=== PATIENT | female | born 1980 | race Caucasian/White ===

== ENCOUNTER → 2016-10-02 | Outpatient (CLI) | payer BC ==
[~2016-10-02] MED LIST: FOLI-11 PO; METF500T PO; PRENTAB26 PO
--- NOTE | 2016-10-02 11:05 | DIAGNOSTIC IMAGING REPORT ---
THYROID ULTRASOUND HISTORY: Neck lymphadenopathy. COMPARISON: None. FINDINGS: A few left cervical lymph nodes are identified. Dominant lymph node measures 1.9 x 0.6 x 0.7 cm. This demonstrates a small fatty hilum and a borderline thickened cortex. IMPRESSION: A few left cervical lymph nodes which do not meet size criteria for pathologic involvement. These are likely benign. However, these lymph nodes demonstrate borderline thickened cortex and a small fatty hilum. If these are increasing in size clinically then consider fine-needle aspiration. Otherwise, follow-up ultrasound is recommended to ensure stability. Electronically signed by: Jp Lemons M.D. 10/02/2016 11:04 AM Dictated Date/Time: 10/02/2016 11:00 AM
== END | disposition home or self-care (01) ==
LOC: C.ULTR 10:38
PROVIDERS: ATTEND Nurse Practitioner Family
DX: R59.1 Generalized enlarged lymph nodes (principal)

== ENCOUNTER 2022-12-11 22:02 | Observation (INO) ==
[2022-12-11] MEDS ORDERED: ONDANSETRON INJ 2 MG/ML 2 ML VIAL IV STA (22:25)
[2022-12-11] MEDS ORDERED: MoRPHine SULFATE 4 MG/ML 1 ML CARP\\VIAL IV PRN (22:25)
[2022-12-11] MEDS ORDERED: SODIUM CHLORIDE 0.9% 1000ML 1,000 ML IV SCH (22:30)
--- NOTE | 2022-12-11 22:35 | Emergency Department Note ---
History of Present Illness General Chief complaint: Abdominal Pain Stated complaint: ABDOMINAL PAIN Time Seen by Provider: 12/11/22 22:12 History of Present Illness Maximum Pain Intensity: 5 This is a 42-year-old female presenting to the emergency department for evaluation of abdominal pain worsening over the past 36 hours. Patient noticed some abdominal discomfort after eating lunch yesterday. She skipped dinner as she reportedly had 7/10 pain. She did have a plain bagel this morning and this did not improve or worsen her discomfort. Her initial pain was epigastric, but now is distinctly in the right lower quadrant. Her last menses was 28 days ago, however she typically is on a 35-day cycle and this is normal for her. Patient does not have a history of belly surgery. She considers herself very healthy, and is an active ultramarathon runner. She has not had fevers or chills. No chest pains, chest tightness, shortness of breath. Home Medications Medication Instructions Recorded Confirmed Type ascorbic acid (vitamin C) 500 mg 500 mg PO DAILY 12/12/22 12/12/22 History tablet (Vitamin C) hydrocortisone 1 % topical cream 1 applic topical DIRECTED PRN 12/12/22 12/12/22 History (Preparation H Hydrocortisone) Hemorrhoids hydrocortisone-pramoxine 2.5 %-1 % 1 applic [place] TID 12/12/22 12/12/22 History rectal cream hydroxyzine HCl 10 mg tablet 20 mg PO HS 12/12/22 12/12/22 History multivitamin 1 tab PO DAILY 12/12/22 12/12/22 History psyllium husk 3.4 gram/5.4 gram 1 tbsp PO DAILY 12/12/22 12/12/22 History oral powder (Metamucil) Allergies Allergy/AdvReac Type Severity Reaction Status Date / Time amoxicillin Allergy Mild Rash Verified 12/12/22 01:15 bacitracin Allergy Mild Unknown Verified 12/12/22 01:08 [From Neosporin ([id number])] cefaclor Allergy Mild Unknown Verified 12/12/22 01:08 erythromycin base Allergy Mild Rash Verified 12/12/22 01:15 Macrolide Antibiotics Allergy Mild Unknown Verified 12/12/22 01:08 neomycin Allergy Mild Unknown Verified 12/12/22 01:08 [From Neosporin ([id number])] nickel Allergy Mild Unknown Verified 12/12/22 01:08 Penicillins Allergy Mild Rash Verified 12/12/22 01:15 polymyxin B Allergy Mild Unknown Verified 12/12/22 01:08 [From Neosporin ([id number])] clarithromycin Allergy Unknown HIVES Verified 12/12/22 01:23 Past Med/Surg History Medical History No chronic diseases present Surgical History No significant past surgical history Social History Smoking Status: Never smoker Do You Dip or Chew Tobacco: No; Hx Alcohol Use: Yes Hx Substance Use: No Preferred Language: Macanese Communication Ability: Effective Assistant Director Of Residence Life Required: No Beliefs That Will Affect Care: None Current Living Situation: Spouse and Family Other Information That Helps Us Care for You: No Feels Safe at Home: Yes Safety Concerns: Feels Safe At This Time Assistive Devices: None Review of Systems A total of 10 systems reviewed and were otherwise negative Physical Exam Vital Signs Vital Signs - 24 hr 12/11/22 22:07 12/11/22 22:38 12/11/22 22:52 Temperature 37.2 C Temperature Source Oral Pulse Rate 78 64 Pulse Rate [Bilateral Apical] 71 Respiratory Rate 16 20 Respiratory Effort / Characteristics Non-Labored Spontaneous Non-Labored Respiratory Depth Normal Normal Respiratory Pattern Regular Blood Pressure 127/72 Blood Pressure [Left Arm] 120/72 Blood Pressure Mean 90 Blood Pressure Mean [Left Arm] 88 Pulse Oximetry 100 99 Oxygen Delivery Method Room Air Room Air Sepsis Recent Fever Within 48 Hours No Sepsis New/Unexplained Change in Mental Status No Sepsis Action Taken by Nursing No Action Required 12/11/22 23:01 12/12/22 01:00 Temperature Temperature Source Pulse Rate 62 71 Pulse Rate [Bilateral Apical] Respiratory Rate 14 20 Respiratory Effort / Characteristics Respiratory Depth Respiratory Pattern Blood Pressure 112/71 115/77 Blood Pressure [Left Arm] Blood Pressure Mean 84 89 Blood Pressure Mean [Left Arm] Pulse Oximetry 100 99 Oxygen Delivery Method Room Air Room Air Sepsis Recent Fever Within 48 Hours Sepsis New/Unexplained Change in Mental Status Sepsis Action Taken by Nursing VITALS: Vitals are noted on the nurse's note and reviewed by myself. Vital signs stable. GENERAL: Well-developed, well-nourished, white female, who is in no acute distress and resting comfortably. Patient is cooperative with the examination. HEAD: Normocephalic atraumatic. NECK: Supple without nuchal rigidity. No lymphadenopathy. No thyromegaly. Cervical spine is nontender. HEART: Regular rate and rhythm without murmurs gallops or rubs. LUNGS: Clear to auscultation bilaterally without wheezes, rales or rhonchi. No retractions or accessory muscle use. ABDOMEN: Positive normal bowel sounds x 4. Soft with distinct right lower quadrant tenderness. Positive rebound tenderness. MUSCULOSKELETAL: No muscle atrophy, erythema, or edema noted. Full range of motion in all extremities. NEURO: Patient was alert and oriented to person place and time. CN II through XII grossly intact. Course Administered Medications Morphine Sulfate (Morphine Sulfate 4 Mg/Ml 1 Ml Carp\Vial) 3 mg IV Q3H PRN PRN Reason: Severe Pain (Scale 7, 8, 9,10) Stop: 12/26/22 00:59 Last Admin: 12/12/22 01:31 Dose: 3 mg Documented By: RADHA Ondansetron HCl (Ondansetron Inj 2 Mg/Ml 2 Ml Vial) 4 mg IV Q6H PRN PRN Reason: Nausea And Vomiting Stop: 01/11/23 00:59 Last Admin: 12/12/22 01:31 Dose: 4 mg Documented By: RADHA Discontinued Medications Sodium Chloride (Nss 1000ml) 1,000 mls @ 999 mls/hr IV .Q1H1M [facility] Stop: 12/11/22 23:30 Last Infusion: 12/11/22 23:44 Dose: 0 mls/hr Documented By: Admin: 12/11/22 22:43 Dose: 999 mls/hr Documented By: SONYA Ciprofloxacin (Cipro / D5w) 400 mg in 200 mls @ 100 mls/hr IV NOW STA; Protocol Stop: 12/12/22 02:59 Last Infusion: 12/12/22 03:44 Dose: 0 mls/hr Documented By: Admin: 12/12/22 01:44 Dose: 100 mls/hr Documented By: RADHA Metronidazole (Flagyl) 500 mg in 100 mls @ 100 mls/hr IV NOW STA; Protocol Stop: 12/12/22 01:59 Last Infusion: 12/12/22 02:31 Dose: 0 mls/hr Documented By: Admin: 12/12/22 01:31 Dose: 100 mls/hr Documented By: RADHA Ioversol (Optiray 320 100ml) 92 ml IV ONCE ONE Stop: 12/12/22 00:12 Last Admin: 12/12/22 00:11 Dose: 92 ml Documented By: FRANKO Ondansetron HCl (Ondansetron Inj 2 Mg/Ml 2 Ml Vial) 4 mg IV NOW STA Stop: 12/11/22 22:26 Last Admin: 12/11/22 22:43 Dose: 4 mg Documented By: SONYA Medical Decision Making Differential Diagnosis Differential diagnosis: Etiologies such as biliary colic, cholecystitis, hepatitis, pancreatitis, cardiac disease, pancreatitis, gastritis, peptic ulcer disease, appendicitis, cystitis, diverticulitis, mesenteric ischemia, inflammatory bowel disease, ileus, bowel obstruction, testicular/adnexal torsion, aortic pathology, shingles, as well as others were considered Laboratory Data 12/11/22 22:40 12/11/22 22:40 Lab Results 12/11/22 12/11/22 12/11/22 Range/Units 22:20 22:38 22:40 WBC 9.69 (4.8-10.8) K/ul RBC 4.80 (4.20-5.40) M/uL Hgb 14.2 (12.0-16.0) g/dl Hct 42.3 (37.0-47.0) % MCV 88.1 (80.0-100.0) fL MCH 29.6 (25.0-34.0) pg MCHC 33.6 (32.0-36.0) g/dL RDW Std Deviation 40.7 (36.4-46.3) fL RDW Coeff of Fred 12.6 (11.5-14.5) % Plt Count 238 (130-400) K/uL MPV 10.5 (9.4-12.4) fL Immature Gran % (Auto) 0.2 % Neut % (Auto) 69.5 % Lymph % (Auto) 19.5 % [place] % (Auto) 7.9 % Eos % (Auto) 2.2 % Baso % (Auto) 0.7 % Neut # (Auto) 6.73 H (1.40-6.50) K/uL Lymph # (Auto) 1.89 (1.2-3.4) K/uL [place] # (Auto) 0.77 H (0.11-0.59) K/uL Eos # (Auto) 0.21 (0-0.50) K/uL Baso # (Auto) 0.07 (0-0.2) K/uL Immature Gran # (Auto) 0.02 (0.01-0.20) K/uL Sodium (136-145) mmol/L Potassium (3.5-5.1) mmol/L Chloride (98-107) mmol/L Carbon Dioxide (21-32) mmol/L Anion Gap (3-11) BUN (6-23) mg/dl Creatinine (0.6-1.2) mg/dl Est Cr Clr Drug Dosing ml/min Est GFR ( Amer) ml/min Est GFR (Non-Af Amer) ml/min BUN/Creatinine Ratio (10-20) Glucose (70-99(Fasting)) mg/dl Calcium (8.6-10.3) mg/dl Total Bilirubin (0.2-1.0) mg/dl AST (13-39) U/L ALT (7-52) U/L Alkaline Phosphatase (34-104) U/L Total Protein (6.0-8.3) gm/dl Albumin (3.4-5.0) gm/dl Globulin (2.5-4.0) gm/dl Albumin/Globulin Ratio (0.9-2) Lipase (11-82) U/L HCG, Qual (Negative) Urine Color Dark Yellow Urine Appearance Clear (Clear) Urine pH 5.5 (4.5-7.5) Ur Specific [place] 1.029 (1.000-1.030) Urine Protein Negative (Negative) Urine Glucose (UA) Negative (Negative) Urine Ketones Trace H (Negative) Urine Blood Negative (Negative) Urine Nitrite Negative (Negative) Urine Bilirubin Negative (Negative) Urine Urobilinogen Negative (Negative) Ur Leukocyte Esterase Negative (Negative) POC Ur Test NEG (NEG) 12/11/22 12/11/22 Range/Units 22:40 22:40 WBC (4.8-10.8) K/ul RBC (4.20-5.40) M/uL Hgb (12.0-16.0) g/dl Hct (37.0-47.0) % MCV (80.0-100.0) fL MCH (25.0-34.0) pg MCHC (32.0-36.0) g/dL RDW Std Deviation (36.4-46.3) fL RDW Coeff of Fred (11.5-14.5) % Plt Count (130-400) K/uL MPV (9.4-12.4) fL Immature Gran % (Auto) % Neut % (Auto) % Lymph % (Auto) % [place] % (Auto) % Eos % (Auto) % Baso % (Auto) % Neut # (Auto) (1.40-6.50) K/uL Lymph # (Auto) (1.2-3.4) K/uL [place] # (Auto) (0.11-0.59) K/uL Eos # (Auto) (0-0.50) K/uL Baso # (Auto) (0-0.2) K/uL Immature Gran # (Auto) (0.01-0.20) K/uL Sodium 139 (136-145) mmol/L Potassium 3.5 (3.5-5.1) mmol/L Chloride 107 (98-107) mmol/L Carbon Dioxide 27 (21-32) mmol/L Anion Gap 5 (3-11) BUN 12 (6-23) mg/dl Creatinine 0.79 (0.6-1.2) mg/dl Est Cr Clr Drug Dosing 88.4 ml/min Est GFR ( Amer) 105.5 ml/min Est GFR (Non-Af Amer) 91.0 ml/min BUN/Creatinine Ratio 15.2 (10-20) Glucose 99 (70-99(Fasting)) mg/dl Calcium 9.1 (8.6-10.3) mg/dl Total Bilirubin 0.8 (0.2-1.0) mg/dl AST 22 (13-39) U/L ALT 18 (7-52) U/L Alkaline Phosphatase 56 (34-104) U/L Total Protein 6.9 (6.0-8.3) gm/dl Albumin 4.2 (3.4-5.0) gm/dl Globulin 2.7 (2.5-4.0) gm/dl Albumin/Globulin Ratio 1.6 (0.9-2) Lipase 88 H (11-82) U/L HCG, Qual Negative (Negative) Urine Color Urine Appearance (Clear) Urine pH (4.5-7.5) Ur Specific [place] (1.000-1.030) Urine Protein (Negative) Urine Glucose (UA) (Negative) Urine Ketones (Negative) Urine Blood (Negative) Urine Nitrite (Negative) Urine Bilirubin (Negative) Urine Urobilinogen (Negative) Ur Leukocyte Esterase (Negative) POC Ur Test (NEG) Imaging Data Radiologist's Impression: Abdomen/Pelvis CT 12/11/22 22:25 CR Exam(s): CT ABDOMEN + PELVIS With Contrast IV Amt: 92 cc's EXAM: CT Abdomen and Pelvis With Intravenous Contrast CLINICAL HISTORY: Reason for exam: rlq abd pain. TECHNIQUE: Axial computed tomography images of the abdomen and pelvis with intravenous contrast. Automated exposure control was utilized for the study. A dose lowering technique was utilized adhering to the principles of ALARA. CONTRAST: Patient received 92 cc's of IV contrast COMPARISON: No relevant prior studies available. FINDINGS: Lung bases: Unremarkable. No mass. No consolidation. ABDOMEN: Liver: Unremarkable. No mass. Gallbladder and bile ducts: Unremarkable. No calcified stones. No ductal dilation. Pancreas: Unremarkable. No mass. No ductal dilation. Spleen: Unremarkable. No splenomegaly. Adrenals: Unremarkable. No mass. Kidneys and ureters: Unremarkable. No solid mass. No hydronephrosis. Stomach and bowel: Unremarkable. No obstruction. No mucosal thickening. PELVIS: Appendix: The appendix is distended and inflamed without a appendicolith identified. No evidence for perforation. Bladder: Unremarkable. No mass. Reproductive: Unremarkable as visualized. ABDOMEN and PELVIS: Intraperitoneal space: Unremarkable. No free air. No significant fluid collection. Bones/joints: No acute fracture. No dislocation. Soft tissues: Unremarkable. Vasculature: Unremarkable. No abdominal aortic aneurysm. Lymph nodes: Unremarkable. No enlarged lymph nodes. IMPRESSION: Acute appendicitis without evidence for perforation or abscess. Communications: Verify Receipt Electronically signed by: Gatito Vásquez MD 12/12/22 00:28 AM MDM Narrative Physical exam and history were performed. Nursing notes, EMR, and Medication List were personally reviewed. No social concerns were identified as barriers to patients care. Patient appears to have right lower quadrant abdominal pain bringing her to the ER. She does have distinct tenderness on palpation. IV access was established and labs were obtained. She was hydrated with normal saline and made NPO. She was given IV morphine and IV Zofran. Patient was sent to CT scan for imaging of her abdomen and pelvis. Patient's blood work is as above and was reviewed. She does not have a significantly elevated white blood cell count, gross anemia, bandemia, or significant electrolyte imbalance. Lipase and transaminases are not diagnostic. She is not . Urine is without distinct evidence of infection. CT scan of the abdomen and pelvis was reviewed by myself and radiology. The patient appears to have acute uncomplicated appendicitis. This would correlate with her symptoms. On reevaluation the patient continues with some mild discomfort, but she is certainly not toxic. COVID is negative. She will need antibiotics, however she has several allergies noted in the EMR and this will be deferred to the surgical team. Case was discussed with the on-call surgical team who did evaluate the patient at bedside. Please see their dictation for further patient course, plan, and disposition. The chart was completed utilizing [employer] Speech Voice Recognition Software. Grammatical errors, random word insertions, pronoun errors, and incomplete sentences are an occasional consequence of this system due to software limitations, ambient noise, and hardware issues. Any formal questions or concerns about the content, text, or information contained within the body of this dictation should be directly addressed to the provider for clarification. . Impression & Plan Acute appendicitis Discharge Plan Visit Data Chief Complaint: Abdominal Pain Stated Complaint: ABDOMINAL PAIN ED Provider: Lacho Dennis ED Midlevel Provider: Rubens Narayan Discharge Problem: Acute appendicitis Patient Disposition: Admitted As Inpatient Discharge Instructions Interventions: ED Discharge Assessment Last Done: 12/12/22 03:43
[2022-12-11 23:13] LABS: Basophils # (auto) 0.07 K/uL (0-0.2); Basophils % (auto) 0.7 %; Eosinophils # (auto) 0.21 K/uL (0-0.50); Eosinophils % (auto) 2.2 %; Hematocrit (blood only) 42.3 % (37.0-47.0); Hemoglobin 14.2 g/dl (12.0-16.0); Immature Granulocytes # (auto) 0.02 K/uL (0.01-0.20); Immature Granulocytes % (auto) 0.2 %; Lymphocytes # (auto) 1.89 K/uL (1.2-3.4); Lymphocytes % (auto) 19.5 %; Mean Corpuscular Hemoglobin 29.6 pg (25.0-34.0); Mean Corpuscular Hgb Conc 33.6 g/dL (32.0-36.0); Mean Corpuscular Volume 88.1 fL (80.0-100.0); Mean Platelet Volume 10.5 fL (9.4-12.4); Monocytes # (auto) 0.77 K/uL (0.11-0.59); Monocytes % (auto) 7.9 %; Neutrophils # (auto) 6.73 K/uL (1.40-6.50); Neutrophils % (auto) 69.5 %; Platelet Count 238 K/uL (130-400); RDW Coefficient of Variation 12.6 % (11.5-14.5); RDW Standard Deviation 40.7 fL (36.4-46.3); White Blood Count 9.69 K/ul (4.8-10.8)
[2022-12-11 23:19] LABS: Appearance Urine Clear (Clear); Bilirubin Urine Negative (Negative); Blood Urine Negative (Negative); Color Urine Dark Yellow; Glucose Urine UA Negative (Negative); Ketones Urine Trace (Negative); Leukocyte Esterase Urine Negative (Negative); Nitrite Urine Negative (Negative); Protein Urine Negative (Negative); Specific Gravity Urine 1.029 (1.000-1.030); Urobilinogen Urine Negative (Negative); pH Urine 5.5 (4.5-7.5)
[2022-12-11 23:21] LABS: Pregnancy Test, Serum Negative (Negative)
[2022-12-11 23:29] LABS: Albumin Level 4.2 gm/dl (3.4-5.0); Bilirubin,Total 0.8 mg/dl (0.2-1.0); Calcium 9.1 mg/dl (8.6-10.3); Potassium 3.5 mmol/L (3.5-5.1)
[2022-12-11 23:35] LABS: Albumin Globulin Ratio 1.6 (0.9-2); BUN Creatinine Ratio 15.2 (10-20); Creatinine Clr Calc Pharmacy 88.4 ml/min; Est GFR (African American) 105.5 ml/min; Globulin 2.7 gm/dl (2.5-4.0); Total Protein 6.9 gm/dl (6.0-8.3)
[2022-12-12] MEDS ORDERED: OPTIRAY 320 100ml IV ONE (00:11)
--- NOTE | 2022-12-12 00:29 | CT Scan Report ---
Exam(s): CT ABDOMEN + PELVIS With Contrast IV Amt: 92 cc's EXAM: CT Abdomen and Pelvis With Intravenous Contrast CLINICAL HISTORY: Reason for exam: rlq abd pain. TECHNIQUE: Axial computed tomography images of the abdomen and pelvis with intravenous contrast. Automated exposure control was utilized for the study. A dose lowering technique was utilized adhering to the principles of ALARA. CONTRAST: Patient received 92 cc's of IV contrast COMPARISON: No relevant prior studies available. FINDINGS: Lung bases: Unremarkable. No mass. No consolidation. ABDOMEN: Liver: Unremarkable. No mass. Gallbladder and bile ducts: Unremarkable. No calcified stones. No ductal dilation. Pancreas: Unremarkable. No mass. No ductal dilation. Spleen: Unremarkable. No splenomegaly. Adrenals: Unremarkable. No mass. Kidneys and ureters: Unremarkable. No solid mass. No hydronephrosis. Stomach and bowel: Unremarkable. No obstruction. No mucosal thickening. PELVIS: Appendix: The appendix is distended and inflamed without a appendicolith identified. No evidence for perforation. Bladder: Unremarkable. No mass. Reproductive: Unremarkable as visualized. ABDOMEN and PELVIS: Intraperitoneal space: Unremarkable. No free air. No significant fluid collection. Bones/joints: No acute fracture. No dislocation. Soft tissues: Unremarkable. Vasculature: Unremarkable. No abdominal aortic aneurysm. Lymph nodes: Unremarkable. No enlarged lymph nodes. IMPRESSION: Acute appendicitis without evidence for perforation or abscess. Communications: Verify Receipt Electronically signed by: Gatito Vásquez MD 12/12/22 00:28 AM
[2022-12-12] MEDS ORDERED: CIPROFLOXACIN / D5W 400 MG/200 ML BAG IV STA (01:00)
[2022-12-12] MEDS ORDERED: ACETAMINOPHEN 1,000 MG/100 ML VIAL IV PRN (01:00)
[2022-12-12] MEDS ORDERED: metroNIDAZOLE 500 MG/100 ML BAG IV STA (01:00)
--- NOTE | 2022-12-12 01:13 | History & Physical Report ---
Date of Service December 12, 2022 Assessment & Plan (1) Acute appendicitis: Plan: Due to the patient's clinical presentation and imaging we will admit her to the hospital and proceed as follows: We will implement n.p.o. status We will hydrate her with IV fluids We will administer antibiotics. I have discussed the patient's numerous allergies with her and she is unsure if they are true allergies. She does believe that she has taken Cipro in the past and she does also believe that she may have taken Flagyl in the past without any significant reactions and we will therefore use intravenous Cipro and Flagyl. Analgesia be provided Antiemetics will be provided A COVID test has been ordered we will follow for the results of this We have tentatively planned for patient undergo an appendectomy with Dr. Briggs on 12/12/2022. I have outlined the risks, benefits, and alternatives of the surgery. I have also outlined the expected postoperative course with the patient and she wished to proceed Additional recommendations will based on operative findings and her postoperative course thereafter We will use SCDs for DVT prevention, no chemical means due to planned surgery She will be a level 1 full code as above. discussed risks/options. questions answered. will proceed this AM with lap appendectomy. pt agreeable. History of Present Illness Chief Complaint: Abdominal pain Primary Care Provider: BRENDA Newton This is a 42-year-old female who presented to the emergency department secondary to abdominal pain. Patient notes that the abdominal pain began around noon time on 01-01. The patient initially felt that she had a stomachache from some bad food that she ate however the pain persisted. Initially the pain was located primarily in her mid abdomen over her stomach but has since shifted to the right lower quadrant. She does not note any additional radiation of the pain. She does note that the pain is worse with certain movements and was particularly worse on the drive to the hospital. She does note that it is somewhat better when she lies still. She denies any fevers, shakes, or chills. She denies any nausea or vomiting. She says she has had prior abdominal surgeries in the form of a . The patient leads a very active lifestyle as she has an ultramarathoner. She notes that she does not get chest pain or shortness of breath with her day-to-day activities and can sometimes run up to 50 miles per week without any limitations. Since arrival to the hospital the patient has had labs and imaging which independent reviewed. A CT scan of the abdomen and pelvis showed the patient had a dilated and inflamed appendix. There is no appendicolith identified and there is no evidence of perforation. This was felt to be consistent with acute appendicitis. Labs included a CBC were white blood cell count, hemoglobin, hematocrit, and platelet count were normal. Chemistry profile showed sodium, potassium, BUN, and creatinine were normal. There is no elevation of patient's LFTs. There was a slight elevation of the lipase at 88. test was negative. A urinalysis was not indicative of infection. A COVID test was negative. At the time of my interview the patient was resting comfortably in bed and she was in no distress. Concerning past medical history she denies any significant medical problems Concerning past surgical history she has had a as noted above. Concerning social history she does not smoke. Concerning family history she does not note premature coronary artery disease. Allergies Allergy/AdvReac Type Severity Reaction Status Date / Time amoxicillin Allergy Mild Rash Verified 12/12/22 01:15 bacitracin Allergy Mild Unknown Verified 12/12/22 01:08 [From Neosporin ([id number])] cefaclor Allergy Mild Unknown Verified 12/12/22 01:08 erythromycin base Allergy Mild Rash Verified 12/12/22 01:15 Macrolide Antibiotics Allergy Mild Unknown Verified 12/12/22 01:08 neomycin Allergy Mild Unknown Verified 12/12/22 01:08 [From Neosporin ([id number])] nickel Allergy Mild Unknown Verified 12/12/22 01:08 Penicillins Allergy Mild Rash Verified 12/12/22 01:15 polymyxin B Allergy Mild Unknown Verified 12/12/22 01:08 [From Neosporin ([id number])] clarithromycin Allergy Unknown HIVES Verified 12/12/22 01:23 Home Medications Medication Instructions Recorded Confirmed Type ascorbic acid (vitamin C) 500 mg 500 mg PO DAILY 12/12/22 12/12/22 History tablet (Vitamin C) hydrocortisone 1 % topical cream 1 applic topical DIRECTED PRN 12/12/22 12/12/22 History (Preparation H Hydrocortisone) Hemorrhoids hydrocortisone-pramoxine 2.5 %-1 % 1 applic [place] TID 12/12/22 12/12/22 History rectal cream hydroxyzine HCl 10 mg tablet 20 mg PO HS 12/12/22 12/12/22 History multivitamin 1 tab PO DAILY 12/12/22 12/12/22 History psyllium husk 3.4 gram/5.4 gram 1 tbsp PO DAILY 12/12/22 12/12/22 History oral powder (Metamucil) Past Med/Surg History Medical History No chronic diseases present Surgical History No significant past surgical history Social History Smoking Status: Never smoker Do You Dip or Chew Tobacco: No; Hx Alcohol Use: Yes Hx Substance Use: No Preferred Language: German Communication Ability: Effective Forestry Worker Required: No Beliefs That Will Affect Care: None Current Living Situation: Spouse and Family Other Information That Helps Us Care for You: No Feels Safe at Home: Yes Safety Concerns: Feels Safe At This Time Assistive Devices: None Review of Systems Constitutional: no fever and no chills Ear, Nose, Mouth, Throat: no ear pain Respiratory: no cough Cardiovascular: no chest pain Gastrointestinal: as per Subjective / HPI Genitourinary: no dysuria Musculoskeletal: no back pain Integumentary: no rash Neurologic: no localized weakness Physical Exam Constitutional: WD/WN, vitals as above Eyes: no conjunctival abnormality ENMT: Ears: no hearing impairment and no external ear abnormality Mouth: no oropharynx abnormality Neck: trachea midline Respiratory: normal respiratory effort, lungs clear to auscultation Cardiovascular: Rate/Rhythm: regular rate and regular rhythm Vessels: dorsalis pedis pulses present and radial pulses present Gastrointestinal (Abdomen): Abdomen is soft and nonrigid. It is nondistended. The patient did have pain with palpation in the right lower quadrant. She also had a Rovsing sign that was positive. There is some slight rebound tenderness noted. Musculoskeletal: No calf tenderness Skin: no rashes Neurologic: moves all extremities Psychiatric: A+Ox3, euthymic affect Results & Data Results & Data Vital Signs (Past 12 Hours) Vital Signs Temp Pulse Pulse Resp BP BP Pulse Ox 12/11/22 23:01 62 14 112/71 100 12/11/22 22:52 64 12/11/22 22:38 71 20 120/72 99 12/11/22 22:07 37.2 C 78 16 127/72 100 O2 Del Method 12/11/22 23:01 Room Air 12/11/22 22:52 12/11/22 22:38 Room Air 12/11/22 22:07 Room Air PG Care Time/CCT Total # of Minutes Spent Total Time Spent with Patient: Total time spent is greater than 50% in coordination of care (as documented) at patient's floor/unit and/or counseling patient: Coding Level of Care Code 95137 INT INP/OBS CARE 3/75MIN Diagnoses Acute appendicitis K35.80
[2022-12-12] MEDS: ONDANSETRON INJ 2 MG/ML 2 ML VIAL IV PRN ×2 (01:31→10:43)
[2022-12-12] MEDS: MoRPHine SULFATE 4 MG/ML 1 ML CARP\\VIAL IV PRN ×3 (01:31→17:30)
[2022-12-12] MEDS: LACTATED RINGER'S 1,000 ML IV SCH ×2 (05:00→10:43)
--- NOTE | 2022-12-12 06:13 | Surgery Progress Note ---
Date of Service December 12, 2022 Assessment & Plan (1) Acute appendicitis: Plan: Due to the patient's clinical presentation and findings on imaging she has been admitted to the hospital. Our plan is as follows: Continue n.p.o. status Continue hydration with intravenous fluids Continue antibiotics. Patient is receiving Cipro and Flagyl and has received her initial doses in the emergency department. Continue analgesics Continue antiemetics COVID testing has been performed and is noted to be negative Patient is scheduled for an appendectomy with Dr. Briggs this morning. Additional recommendations will based on operative findings and her postoper ative course thereafter We will use SCDs for DVT prevention, no chemical means due to planned surgery She will be a level 1 full code Admission and Anticipated Discharge Date Admission Date: December 12, 2022 Subjective Patient is resting comfortably in bed. She denies any fevers, shakes, or chills. She denies any nausea or vomiting since arrival to the surgical [facility]. She does note persistent and continued right lower quadrant abdominal pain that is slightly worse than what was noted in the emergency department. Physical Exam Gastrointestinal (Abdomen): Abdomen is soft and nonrigid. Patient did have marked tenderness in the right lower quadrant with palpation. Results & Data Vital Signs (Past 12 Hours) Vital Signs Temp Pulse Pulse Resp BP BP Pulse Ox 12/12/22 03:00 70 18 97/65 L 98 12/12/22 02:00 72 19 121/67 97 12/12/22 01:00 71 20 115/77 99 12/11/22 23:01 62 14 112/71 100 12/11/22 22:52 64 12/11/22 22:38 71 20 120/72 99 12/11/22 22:07 37.2 C 78 16 127/72 100 O2 Del Method 12/12/22 03:00 Room Air 12/12/22 02:00 Room Air 12/12/22 01:00 Room Air 12/11/22 23:01 Room Air 12/11/22 22:52 12/11/22 22:38 Room Air 12/11/22 22:07 Room Air PG Care Time/CCT Total # of Minutes Spent Total Time Spent with Patient: Total time spent is greater than 50% in coordination of care (as documented) at patient's floor/unit and/or counseling patient: Coding Level of Care Code None Diagnoses Acute appendicitis K35.80
[2022-12-12] MEDS ORDERED: LIDOCAINE 2% 2 ML VIAL/AMP(20MG/ML) INFIL ONE (06:54)
[2022-12-12] MEDS ORDERED: DEXAMETHASONE SOD INJ 4 MG/ML VIAL ONE (06:54)
[2022-12-12] MEDS ORDERED: ONDANSETRON INJ 2 MG/ML 2 ML VIAL ONE (06:54)
[2022-12-12] MEDS ORDERED: PROPOFOL IV EMULSION 10 MG/ML 20 ML VIAL IV ONE (06:54)
[2022-12-12] MEDS ORDERED: MIDAZOLAM HCL 1 MG/ML 2ML VIAL ONE (06:55)
[2022-12-12] MEDS ORDERED: fentaNYL citrate PF 100 MCG/2 ML VIAL ONE (06:55)
[2022-12-12] MEDS ORDERED: ROCURONIUM BROMIDE 10 MG/ML 5 ML VIAL IV ONE (06:59)
[2022-12-12] MEDS ORDERED: BUPIVACAINE/EPINEPHRINE 0.5% MPF 1:200,000 30 ML VIAL ONE (07:17)
--- NOTE | 2022-12-12 07:26 | Anesthesiology Consultation ---
Date of Service December 12, 2022 Assessment & Plan Chart Review Chart Review: Acceptable Risk for Surgery and Patient NOT seen in Pre Admission Testing Consults Requested none ASA [id number] Proposed Anesthesia Anesthesia Type: General History Surgery Operation Date: 12/12/22 06:55 Proposed Procedures p Laparoscopic Appendectomy - Pato Briggs, Height/Weight Height: 5 ft 7 in Weight: 73.4 kg Allergies Allergy/AdvReac Type Severity Reaction Status Date / Time amoxicillin Allergy Mild Rash Verified 12/12/22 01:15 bacitracin Allergy Mild Unknown Verified 12/12/22 01:08 [From Neosporin ([id number])] cefaclor Allergy Mild Unknown Verified 12/12/22 01:08 erythromycin base Allergy Mild Rash Verified 12/12/22 01:15 Macrolide Antibiotics Allergy Mild Unknown Verified 12/12/22 01:08 neomycin Allergy Mild Unknown Verified 12/12/22 01:08 [From Neosporin ([id number])] nickel Allergy Mild Unknown Verified 12/12/22 01:08 Penicillins Allergy Mild Rash Verified 12/12/22 01:15 polymyxin B Allergy Mild Unknown Verified 12/12/22 01:08 [From Neosporin ([id number])] clarithromycin Allergy Unknown HIVES Verified 12/12/22 01:23 Medications Home Medications Medication Instructions Recorded Confirmed Last Taken ascorbic acid (vitamin C) 500 mg 500 mg PO DAILY 12/12/22 12/12/22 Unknown tablet (Vitamin C) hydrocortisone 1 % topical cream 1 applic topical DIRECTED PRN 12/12/22 12/12/22 Unknown (Preparation H Hydrocortisone) Hemorrhoids hydrocortisone-pramoxine 2.5 %-1 % 1 applic ND TID 12/12/22 12/12/22 Unknown rectal cream hydroxyzine HCl 10 mg tablet 20 mg PO HS 12/12/22 12/12/22 Unknown multivitamin 1 tab PO DAILY 12/12/22 12/12/22 Unknown psyllium husk 3.4 gram/5.4 gram 1 tbsp PO DAILY 12/12/22 12/12/22 Unknown oral powder (Metamucil) Active Medications Generic Name Dose Route Start Last Admin Trade Name Freq PRN Reason Stop Dose Admin Lactated Ringer's 1,000 mls @ 125 mls/hr 12/12/22 01:00 12/12/22 05:00 Lr IV 01/11/23 00:59 125 mls/hr .Q8H ASIYA Administration Morphine Sulfate 3 mg 12/12/22 01:00 12/12/22 01:31 Morphine Sulfate 4 Mg/Ml 1 Ml Carp\Vial IV 12/26/22 00:59 3 mg Q3H PRN Administration Severe Pain (Scale 7, 8, 9,10) Ondansetron HCl 4 mg 12/12/22 01:00 12/12/22 01:31 Ondansetron Inj 2 Mg/Ml 2 Ml Vial IV 01/11/23 00:59 4 mg Q6H PRN Administration Nausea And Vomiting Past Medical History Medical History No chronic diseases present Exercise / Class Metabolic Activity 1 > 8 Run/Swim/Ski/Tennis Past Surgical History Surgical History No significant past surgical history Past Anesthesia History No Hx of Anesthesia Complications and No Family Hx of Anesthesia Complications History of PONV No Hx of PONV and No Hx of Motion Sickness Social History Smoking Status: Never smoker Do You Dip or Chew Tobacco: No Hx Alcohol Use: Yes alcohol intake frequency: holidays/special occasions only Hx Substance Use: No Physical Exam Vital Signs Last Vital Signs Temp 37.1 C 12/12/22 07:20 Pulse 73 12/12/22 07:20 Resp 16 12/12/22 07:20 BP 117/78 12/12/22 07:20 Pulse Ox 98 12/12/22 07:20 O2 Del Method Room Air 12/12/22 07:20 Testing Laboratory Results 12/11/22 22:40 12/11/22 22:40 Urine Color Dark Yellow 12/11/22 22:20 Urine Appearance Clear (Clear) 12/11/22 22:20 Urine pH 5.5 (4.5-7.5) 12/11/22 22:20 Ur Specific [place] 1.029 (1.000-1.030) 12/11/22 22:20 Urine Protein Negative (Negative) 12/11/22 22:20 Urine Glucose (UA) Negative (Negative) 12/11/22 22:20 Urine Ketones Trace (Negative) H 12/11/22 22:20 Urine Nitrite Negative (Negative) 12/11/22 22:20 Ur Leukocyte Esterase Negative (Negative) 12/11/22 22:20 12/11/22 22:38 POC Ur Test NEG
[2022-12-12] MEDS ORDERED: ONDANSETRON INJ 2 MG/ML 2 ML VIAL IV PRN (07:42)
[2022-12-12] MEDS ORDERED: PROMETHAZINE HCL 12.5 MG in SODIUM CHLORIDE 0.9% 50 ML IV PRN (07:42)
[2022-12-12] MEDS ORDERED: ATROPINE SULFATE 0.1 MG/ML 10ML SYR IV PRN (07:42)
[2022-12-12] MEDS ORDERED: FLUMAZENIL 0.1 MG/1 ML 10 ML VIAL IV PRN (07:42)
[2022-12-12] MEDS ORDERED: ePHEDrine sulfate 50 MG/ML AMP IV PRN (07:42)
[2022-12-12] MEDS ORDERED: NALOXONE HCL 0.4 MG/1 ML VIAL/CARP IV PRN (07:42)
[2022-12-12] MEDS ORDERED: SUCCINYLCHOLINE CHLORIDE 20 MG/ML 10 ML VIAL IV ONE (07:58)
[2022-12-12] MEDS ORDERED: KETOROLAC 30 MG/ML VIAL ONE (08:38)
[2022-12-12] MEDS ORDERED: SUGAMMADEX SODIUM 200 MG/2 ML VIAL IV ONE (08:41)
--- NOTE | 2022-12-12 09:13 | Operative Report ---
PG Post Operative Report Pre & Post Diagnosis Operation Date: 12/12/22 06:55 Pre-Op Diagnosis: Acute appendicitis Post-Op Diagnosis: Acute appendicitis ;adhesions I identified the patient and participated in the time-out.: Yes Procedure Operation Date: 12/12/22 06:55 Actual Procedures p Laparoscopic Appendectomy and enterolysis(Not Applicable) - Pato Briggs DO Surgeon Pato Briggs DO Economics Instructor Meci,MS2 Estimated Blood Loss 5 Findings Consistent with Post-Op Diagnosis Specimens appendix Description of Procedure After informed consent was obtained the patient was taken to the operating room and placed in supine position. After successful intubation a Scanlon catheter was placed and the left arm was tucked. I began by making a periumbilical incision with an 11 blade scalpel and carried this down through the soft tissue using electrocautery. The anterior rectus fascia was opened using electrocautery and 2 #0 Vicryl stay sutures were placed. The peritoneum was elevated using hemostats and incised under direct vision using a Metzenbaum scissor. A finger sweep was performed. A 12 mm Love trocar was placed and the abdomen was insufflated to 18 mmHg. A laparoscope was inserted and the abdomen was examined in 360. A suprapubic 5 mm port and a left lower quadrant 12 mm port were placed under direct vision. Initially noticed some adhesions in the lower abdomen. I was able to use a harmonic scalpel to take these down from the anterior abdominal wall. They involved omentum and small bowel. Next, the patient was air planed to the left as well as placed in a slight Trendelenburg position. We began by looking in the right lower quadrant. We were able to readily identify the appendix and it was grossly inflamed. It was retrocecal and it had not perforated. There is a small amount of purulent fluid in the right lower quadrant and the pelvis. We immediately irrigated and suctioned this out. I was able to use primarily blunt dissection to pull the appendix away from the right lower quadrant sidewall. Small amount of harmonic scalpel was used to take down the white line of Toldt and to free up the appendix from the right lower quadrant sidewall. Next I made a small window in the mesentery of the appendix. I was then able to use a BROWN brown cartridge stapler to transect the mesentery of the appendix. Next, I used a 60 mm purple cartridge to transect the appendix itself at its base with the cecum. It was then placed into an Endo Catch bag and removed from the camera port site. We thoroughly irrigated the right lower quadrant as well as the pelvis. There was adequate hemostasis. I ran the small bowel backwards from the terminal ileum for about 6 feet all of which was normal. All the peritoneal surfaces were normal. Small/ large bowel, liver, stomach etc. all appeared grossly normal. We did a final irrigation and then removed all the trochars and desufflated the abdomen. The fascia of the camera port as well as the left lower quadrant were closed using 0 Vicryl in [id number] fashion. Wounds were all irrigated and closed using 4-0 Monocryl. Marcaine was injected around them for postoperative analgesia and skin glue used as a dressing. The patient was awakened extubated and transferred to recovery in stable condition. I attest to the content of the Intraoperative Record and any orders documented therein. Any exceptions are noted below.
[2022-12-12] MEDS ORDERED: PROMETHAZINE HCL INJ 25 MG/ML 1 ML VIAL ONE (09:16)
[2022-12-12] MEDS ORDERED: SODIUM CHLORIDE 0.9% 50 ML BAG ONE (09:16)
[2022-12-12] MEDS: fentaNYL citrate PF 100 MCG/2 ML VIAL IV PRN ×4 (09:28→09:43)
[2022-12-12] MEDS: HYDROmorphone INJ 1 MG/ML SYRINGE IV PRN ×2 (09:58→10:03)
[2022-12-12] MEDS ORDERED: metroNIDAZOLE 500 MG/100 ML BAG IV SCH (10:00)
--- NOTE | 2022-12-12 10:16 | Anesthesiology Progress Note ---
Date of Service December 12, 2022 Anesthesia Post Procedure Vital Signs Vital Signs: Temp Pulse Pulse Pulse Resp BP BP 12/12/22 10:00 37.1 C 61 11 L 108/67 12/12/22 09:40 56 L 14 110/75 12/12/22 09:30 58 L 12 114/78 12/12/22 09:20 72 17 120/72 12/12/22 09:50 37.1 C 74 14 112/68 12/12/22 09:10 67 21 111/77 12/12/22 09:02 37.0 C 67 16 112/78 12/12/22 09:02 37.0 C 16 112/78 12/12/22 07:20 37.1 C 73 16 117/78 12/12/22 06:00 37 C 62 16 117/77 12/12/22 03:00 70 18 97/65 L 12/12/22 02:00 72 19 121/67 12/12/22 01:00 71 20 115/77 12/11/22 23:01 62 14 112/71 12/11/22 22:52 64 12/11/22 22:38 71 20 120/72 12/11/22 22:07 37.2 C 78 16 127/72 Pulse Ox O2 Del Method O2 Flow Rate 12/12/22 10:00 100 Room Air 12/12/22 09:40 100 Oxymask 3 12/12/22 09:30 100 Oxymask 4 12/12/22 09:20 100 Oxymask 4 12/12/22 09:50 99 Oxymask 2 12/12/22 09:10 100 Oxymask 5 12/12/22 09:02 100 Oxymask 5 12/12/22 09:02 100 Oxymask 5 12/12/22 07:20 98 Room Air 12/12/22 06:00 96 Room Air 12/12/22 03:00 98 Room Air 12/12/22 02:00 97 Room Air 12/12/22 01:00 99 Room Air 12/11/22 23:01 100 Room Air 12/11/22 22:52 12/11/22 22:38 99 Room Air 12/11/22 22:07 100 Room Air Pain Intensity Right Lower Abdomen: Pain Intensity: 3 Transfer of Care Handoff Completed per policy Notes Mental Status: alert / awake / arousable Patient Amnestic to Procedure: Yes Nausea / Vomiting: adequately controlled Pain: adequately controlled Airway Patency, RR, SpO2: stable & adequate BP & HR: stable & adequate Hydration State: stable & adequate Anesthetic Complications: no major complications apparent
[2022-12-12] MEDS ORDERED: oxyCODONE HCL IR 5 MG TAB (IMMEDIATE RELEASE) PO PRN (10:41)
[2022-12-12] MEDS ORDERED: CIPROFLOXACIN / D5W 400 MG/200 ML BAG IV SCH (14:00)
--- NOTE | 2022-12-14 19:52 | Discharge Summary ---
Date of Service December 14, 2022 Admission HPI Per Admitting Provider This is a 42-year-old female who presented to the emergency department secondary to abdominal pain. Patient notes that the abdominal pain began around noon time on 01-01. The patient initially felt that she had a stomachache from some bad food that she ate however the pain persisted. Initially the pain was located primarily in her mid abdomen over her stomach but has since shifted to the right lower quadrant. She does not note any additional radiation of the pain. She does note that the pain is worse with certain movements and was particularly worse on the drive to the hospital. She does note that it is somewhat better when she lies still. She denies any fevers, shakes, or chills. She denies any nausea or vomiting. She says she has had prior abdominal surgeries in the form of a . The patient leads a very active lifestyle as she has an ultramarathoner. She notes that she does not get chest pain or shortness of breath with her day-to-day activities and can sometimes run up to 50 miles per week without any limitations. Since arrival to the hospital the patient has had labs and imaging which independent reviewed. A CT scan of the abdomen and pelvis showed the patient had a dilated and inflamed appendix. There is no appendicolith identified and there is no evidence of perforation. This was felt to be consistent with acute appendicitis. Labs included a CBC were white blood cell count, hemoglobin, hematocrit, and platelet count were normal. Chemistry profile showed sodium, potassium, BUN, and creatinine were normal. There is no elevation of patient's LFTs. There was a slight elevation of the lipase at 88. test was negative. A urinalysis was not indicative of infection. A COVID test was negative. At the time of my interview the patient was resting comfortably in bed and she was in no distress. Concerning past medical history she denies any significant medical problems Concerning past surgical history she has had a as noted above. Concerning social history she does not smoke. Concerning family history she does not note premature coronary artery disease. Discharge Data Consultations 12/12/22 00:38 Consult General Surgery Stat Procedures Performed Operation Date: 12/12/22 06:55 Actual Procedures p Laparoscopic Appendectomy and enterolysis(Not Applicable) - Pato Briggs, DO Hospital Course (1) Acute appendicitis: This patient was admitted to [facility] on 12/12/2022 secondary abdominal pain. Patient underwent a CT scan abdomen pelvis that showed findings concerning for acute appendicitis. She was treated with antibiotics in form of cefoxitin taken the operating room by Dr. Briggs on 12/12/2022 where he performed an on complicated laparoscopic appendectomy. Patient had uneventful postoperative course and she was able to be discharged home the same day as her surgery. This date of discharge was 12/12/2022. She was instructed on appropriate wound care, diet, and activity and instructed follow-up with Dr. Briggs in the clinic in approximately 1 to 2 weeks. Coding Level of Care Code 51620 IN/OBS DISCH 30 MIN/LESS Diagnoses Acute appendicitis K35.80
== END 2022-12-12 17:45 | disposition home or self-care (01) ==
LOC: ED 22:02 → INTOOBSV 12-12 01:15 → 3N 12-12 01:15